=== PATIENT | male | born 1990 | race Hispanic/Latino ===

== ENCOUNTER 2019-02-12 14:04 | Emergency (ER) | payer SELFPAY ==
[2019-02-12] MEDS ORDERED: CYCLOBENZAPRINE 10 MG TAB ONE (14:22)
[2019-02-12] MEDS ORDERED: KETOROLAC 30 MG/ML INJ ONE (14:22)
[2019-02-12] MEDS ORDERED: LIDOCAINE 4% PATCH ONE (14:23)
--- NOTE | 2019-02-12 15:04 | ER ---
Nurse's Notes [facility] Name: Mateus Márquez Age: 29 yrs Sex: Male : 1990 Arrival Date: 02/12/2019 Time: 14:06 Bed 13 Private MD: Diagnosis: Low back pain Presentation: 02/12 14:09 Presenting complaint: Patient states: L lower back pain that radiates down L leg x 6 ss months is much worse this morning. Transition of care: patient was not received from another setting of care. Onset of symptoms was July 2018. Risk Assessment: Do you want to hurt yourself or someone else? Patient reports no desire to harm self or others. Initial Sepsis Screen: Does the patient meet any 2 criteria? HR > 90 bpm. Does the patient have a suspected source of infection? No. Patient's initial sepsis screen is negative. Care prior to arrival: None. 14:09 Method Of Arrival: Ambulatory ss 14:09 Acuity: [place] 3 ss Historical: - Allergies: 14:10 No Known Allergies; ss - Home Meds: 14:10 None [Active]; ss - PMHx: 14:10 Diabetes - NIDDM; ss - PSHx: 14:10 None; ss - Immunization history:: Adult Immunizations up to date. - Social history:: Smoking status: Patient/guardian denies using tobacco. - Ebola Screening: : Patient denies exposure to infectious person Patient denies travel to an Ebola-affected area in the 21 days before illness onset. Screenin:38 Abuse screen: Denies threats or abuse. Denies injuries from another. Nutritional mg2 screening: No deficits noted. Tuberculosis screening: No symptoms or risk factors identified. Fall Risk Ambulatory Aid- None/Bed Rest/Nurse Assist (0 pts). Assessment: 14:37 General: Appears in no apparent distress. comfortable, Behavior is calm, cooperative. mg2 Pain: Complains of pain in back Pain radiates to left leg. Neuro: Level of Consciousness is awake, alert, obeys commands, Oriented to person, place, time, situation. Cardiovascular: Capillary refill < 3 seconds Patient's skin is warm and dry. Respiratory: Airway is patent Respiratory effort is even, unlabored, Respiratory pattern is regular, symmetrical. GI: No signs and/or symptoms were reported involving the gastrointestinal system. : No signs and/or symptoms were reported regarding the genitourinary system. EENT: No signs and/or symptoms were reported regarding the EENT system. Derm: Skin is intact, is healthy with good turgor, Skin is pink, warm \T\ dry. normal. Musculoskeletal: Circulation, motion, and sensation intact. Capillary refill < 3 seconds, Reports pain in back since 6 months ago. 15:33 Reassessment: Patient states feeling better. mg2 Vital Signs: 14:10 BP 119 / 75; Pulse 124; Resp 18; Temp 98.7(TE); Pulse Ox 97% on R/A; Weight 88.45 kg; ss Height 5 ft. 10 in. (177.80 cm); Pain 8/10; 15:34 BP 120 / 70; Pulse 98; Resp 18; Temp 98; Pulse Ox 100% on R/A; Pain 4/10; mg2 14:10 Body Mass Index 27.98 (88.45 kg, 177.80 cm) ss ED Course: 14:06 Patient arrived in ED. mr 14:10 Triage completed. ss 14:10 Arm band placed on right wrist. ss 14:14 Jt Weeks NP is PHCP. pm1 14:14 Gaston Hill MD is Attending Physician. pm1 14:16 Nehemias Schroeder RN is Primary Nurse. mg2 14:39 No provider procedures requiring assistance completed. Patient did not have IV access mg2 during this emergency room visit. 14:40 Patient has correct armband on for positive identification. mg2 Administered Medications: 14:31 Drug: Lidoderm 5 % (700 mg/patch) 1 patches {Note: left leg and lower back.} Route: mg2 Topical; Site: affected area; 15:27 Follow up: Response: No adverse reaction; Marked relief of symptoms mg2 14:31 Drug: TORadol 60 mg Route: IM; Site: left gluteus; mg2 15:26 Follow up: Response: No adverse reaction; Marked relief of symptoms mg2 14:31 Drug: Flexeril 10 mg Route: PO; mg2 15:26 Follow up: Response: No adverse reaction; Marked relief of symptoms mg2 Outcome: 15:04 Discharge ordered by . pm1 15:34 Discharged to home via wheelchair, with family. mg2 15:34 Condition: stable 15:34 Discharge instructions given to patient, family, Instructed on discharge instructions, follow up and referral plans. medication usage, Demonstrated understanding of instructions, follow-up care, medications, Prescriptions given X 3. 15:34 Patient left the ED. mg2 Signatures: Tori Ha Shelby, RN RN ss Jt Weeks, YESI [employer] pm1 Nehemias Schroeder RN RN mg2
--- NOTE | 2019-02-12 15:05 | EDPHYS ---
Physician Documentation [facility] Name: Mateus Márquez Age: 29 yrs Sex: Male : 1990 Arrival Date: 02/12/2019 Time: 14:06 Bed 13 Private MD: ED Physician Gaston Hill HPI: 02/12 14:15 This 29 yrs old Male presents to ER via Ambulatory with complaints of Back pm1 Pain, Leg Pain. 14:15 The symptoms are located in the left low back. Onset: The symptoms/episode pm1 began/occurred 6 month(s) ago. The pain radiates to the left hamstring and left calf. Associated signs and symptoms: Pertinent negatives: abdominal pain, chest pain, constipation, dysuria, fever, nausea, numbness, tingling, vomiting. The problem was sustained when lifting heavy object, 6 months ago. Modifying factors: The patient symptoms are alleviated by remaining still, the patient symptoms are aggravated by lifting, movement. Severity of symptoms: in the emergency department the symptoms are actually worse. The patient has not experienced similar symptoms in the past. The patient has not recently seen a physician. Historical: - Allergies: 14:10 No Known Allergies; ss - Home Meds: 14:10 None [Active]; ss - PMHx: 14:10 Diabetes - NIDDM; ss - PSHx: 14:10 None; ss - Immunization history:: Adult Immunizations up to date. - Social history:: Smoking status: Patient/guardian denies using tobacco. - Ebola Screening: : Patient denies exposure to infectious person Patient denies travel to an Ebola-affected area in the 21 days before illness onset. ROS: 14:15 Constitutional: Negative for fever, chills, and weight loss. pm1 14:15 Eyes: Negative for injury, pain, redness, and discharge, ENT: Negative for injury, pm1 pain, and discharge, Neck: Negative for injury, pain, and swelling, Cardiovascular: Negative for chest pain, palpitations, and edema, Respiratory: Negative for shortness of breath, cough, wheezing, and pleuritic chest pain, Abdomen/GI: Negative for abdominal pain, nausea, vomiting, diarrhea, and constipation. 14:15 MS/Extremity: Negative for injury and deformity, Skin: Negative for injury, rash, and discoloration. 14:15 Neuro: Negative for headache, weakness, numbness, tingling, and seizure. 14:15 Back: Positive for of the left low back, pain. Exam: 14:15 Constitutional: This is a well developed, well nourished patient who is awake, alert, pm1 and in no acute distress. Head/Face: Normocephalic, atraumatic. Neck: Trachea midline, no thyromegaly or masses palpated, and no cervical lymphadenopathy. Supple, full range of motion without nuchal rigidity, or vertebral point tenderness. No Meningismus. Chest/axilla: Normal chest wall appearance and motion. Nontender with no deformity. No lesions are appreciated. Cardiovascular: Regular rate and rhythm with a normal S1 and S2. No gallops, murmurs, or rubs. Normal PMI, no JVD. No pulse deficits. Respiratory: Lungs have equal breath sounds bilaterally, clear to auscultation and percussion. No rales, rhonchi or wheezes noted. No increased work of breathing, no retractions or nasal flaring. Abdomen/GI: Soft, non-tender, with normal bowel sounds. No distension or tympany. No guarding or rebound. No evidence of tenderness throughout. 14:15 Skin: Warm, dry with normal turgor. Normal color with no rashes, no lesions, and no evidence of cellulitis. MS/ Extremity: Pulses equal, no cyanosis. Neurovascular intact. Full, normal range of motion. 14:15 Back: pain, that is mild, of the Upper aspect of left gluteus cyn, normal spinal alignment noted. 14:15 Neuro: Orientation: is normal, Motor: is normal, moves all fours, Sensation: is normal, no obvious gross deficits. Vital Signs: 14:10 BP 119 / 75; Pulse 124; Resp 18; Temp 98.7(TE); Pulse Ox 97% on R/A; Weight 88.45 kg; ss Height 5 ft. 10 in. (177.80 cm); Pain 8/10; 15:34 BP 120 / 70; Pulse 98; Resp 18; Temp 98; Pulse Ox 100% on R/A; Pain 4/10; mg2 14:10 Body Mass Index 27.98 (88.45 kg, 177.80 cm) MDM: 14:30 Patient medically screened. pm1 15:03 Data reviewed: vital signs. Data interpreted: Pulse oximetry: on room air is 97 %. pm1 Interpretation: normal. Counseling: I had a detailed discussion with the patient and/or guardian regarding: the historical points, exam findings, and any diagnostic results supporting the discharge/admit diagnosis, the need for outpatient follow up, to return to the emergency department if symptoms worsen or persist or if there are any questions or concerns that arise at home. Administered Medications: 14:31 Drug: Lidoderm 5 % (700 mg/patch) 1 patches {Note: left leg and lower back.} Route: mg2 Topical; Site: affected area; 15:27 Follow up: Response: No adverse reaction; Marked relief of symptoms mg2 14:31 Drug: TORadol 60 mg Route: IM; Site: left gluteus; mg2 15:26 Follow up: Response: No adverse reaction; Marked relief of symptoms mg2 14:31 Drug: Flexeril 10 mg Route: PO; mg2 15:26 Follow up: Response: No adverse reaction; Marked relief of symptoms mg2 Disposition: 02/12/19 15:04 Discharged to Home. Impression: Low back pain. - Condition is Stable. - Discharge Instructions: Back Pain, Adult, Muscle Strain, Sciatica. - Prescriptions for Naprosyn 500 mg Oral Tablet - take 1 tablet by ORAL route 2 times per day take with food; 30 tablet. Cyclobenzaprine 10 mg Oral Tablet - take 1 tablet by ORAL route every 8 hours As needed; 30 tablet. Lidoderm 5 % Topical adhesive patch,medicated - apply 1 patch by TRANSDERMAL route once daily As needed; 30 Transdermal Patch. - Medication Reconciliation Form, Thank You Letter, Antibiotic Education, Prescription Opioid Use, Work release form form. - Follow up: Emergency Department; When: As needed; Reason: Worsening of condition. Follow up: Private Physician; When: 2 - 3 days; Reason: Recheck today's complaints, Continuance of care, Re-evaluation by your physician. - Problem is new. - Symptoms have improved. Addendum: 02/15/2019 07:00 Co-signature as Attending Physician, Gaston Hill MD I agree with the assessment and k dr plan of care. Signatures: Gaston Hill MD MD [facility] Marcelle Snell RN RN ss Jt Weeks, YESI [employer] ENGINEER pm1 [place], Nehemias, RN RN mg2 Corrections: (The following items were deleted from the chart) 02/12 15:34 15:04 02/12/2019 15:04 Discharged to Home. Impression: Low back pain. Condition is mg2 Stable. Forms are Medication Reconciliation Form, Thank You Letter, Antibiotic Education, Prescription Opioid Use. Follow up: Emergency Department; When: As needed; Reason: Worsening of condition. Follow up: Private Physician; When: 2 - 3 days; Reason: Recheck today's complaints, Continuance of care, Re-evaluation by your physician. Problem is new. Symptoms have improved. pm1
[2019-02-12 17:52] VITALS: BP 120/70; TEMP 98; O2SAT 100
== END 2019-02-12 15:34 | disposition home or self-care (01) ==
LOC: ER 14:04
DX: M54.5 Low back pain (principal)
CPT/HCPCS: 96372; 99283